=== PATIENT | female | born 1950 | race Hispanic/Latino ===

== ENCOUNTER 2017-06-16 16:58 | Emergency (ER) | payer OTHER, MEDICARE ==
[~2017-06-16 16:58] MED LIST: INSREG SQ; LISI-613 PO; METF500T6 PO; OXYB10TA4 PO; SIMV40TA59 PO
[2017-06-16 17:24] LABS: BILIRUBIN,URINE Negative (NEGATIVE); COLOR,URINE Yellow (YELLOW); GLUCOSE, URINE (UA) Negative (NEGATIVE); KETONES,URINE Negative (NEGATIVE); LEUKOCYTE ESTERASE ,URINE Trace (NEGATIVE); NITRATE,URINE Negative (NEGATIVE); OCCULT BLOOD,URINE Small (NEGATIVE); PROTEIN,URINE Negative (NEGATIVE)
[2017-06-16 17:25] LABS: APPEARANCE,URINE SLIGHTLY CLOUDY (CLEAR)
[2017-06-16] MEDS ORDERED: ACETAMINOPHEN 325 MG TAB ONE (17:34)
[2017-06-16 17:38] LABS: BASOPHILS % (AUTO) 0.5 % (0.0-5.0); EOSINOPHILS % (AUTO) 0.3 % (0.0-8.0); HEMATOCRIT 30.7 % (36-48); LYMPHOCYTES % (AUTO) 10.6 % (21.0-51.0); MEAN CORPUSCULAR HEMOGLOBIN 32.5 pg (27.0-33.0); MEAN CORPUSCULAR VOLUME 92.7 fL (79-99); NEUTROPHILS % (AUTO) 82.6 % (40.0-77.0); PLATELET COUNT (AUTO) 184 K/uL (130-400); RED BLOOD CELL COUNT(AUTO) 3.31 MIL/uL (4.00-5.50); RED CELL DISTRIBUTION WIDTH 12.8 % (11.0-15.5); WHITE BLOOD COUNT (AUTO) 8.4 K/uL (4.8-10.8)
[2017-06-16 17:39] LABS: BACTERIA,URINE Few /HPF (None Seen); SQUAMOUS EPITHELIAL CELL,UR Few /HPF (0-2); WBC,URINE 0-1 /HPF (0-1)
[2017-06-16 17:40] LABS: MUCUS,URINE Rare LPF (None Seen)
[2017-06-16 17:49] LABS: POTASSIUM 4.5 mmol/L (3.5-5.1)
[2017-06-16 17:53] LABS: ALBUMIN 3.4 g/dL (3.5-5.0); BILIRUBIN,TOTAL 0.4 mg/dL (0.2-1.0); TOTAL PROTEIN, SERUM 7.2 g/dL (6.0-8.3)
[2017-06-16 17:55] LABS: RAPID GROUP A STREP NEGATIVE (NEGATIVE)
[2017-06-16] MEDS ORDERED: BENZONATATE 100 MG CAPSULE PO ONE (18:31)
[2017-06-16] MEDS ORDERED: SODIUM CHLORIDE 0.9% 1000ML 1,000 ML IV ONE (18:31)
[2017-06-16] MEDS ORDERED: OSELTAMIVIR PHOSPHATE 75 MG CAP ONE (19:40)
[2017-06-16] MEDS ORDERED: IPRATROPIUM/ALBUTEROL SULFATE 3 ML SOLUTION IH ONE (19:45)
[2017-06-16] MEDS ORDERED: METOPROLOL TARTRATE 50 MG TAB ONE (20:36)
[2017-06-16] MEDS ORDERED: AMLODIPINE BESYLATE 5 MG TAB PO ONE (20:36)
[2017-06-16] MEDS ORDERED: METFORMIN HCL 500 MG TABLET ONE (20:37)
== END 2017-06-16 21:28 | disposition home or self-care (01) ==
LOC: EDH 16:58
DX: J06.9 Acute upper respiratory infection, unspecified (principal); E11.9 Type 2 diabetes mellitus without complications; I10 Essential (primary) hypertension; E78.5 Hyperlipidemia, unspecified
CPT/HCPCS: 36415; 71045; 80053; 81001; 83605; 85025; 87040 ×2; 87088; 87804 ×2; 87880; 93005; 94640; 96360; 96361; 99285; J7030

== ENCOUNTER 2018-03-08 08:28 | Emergency (ER) | payer OTHER, MEDICARE ==
[~2018-03-08 08:28] MED LIST changes: +METF-444 PO; -METF500T6 PO
[2018-03-08] MEDS ORDERED: SODIUM CHLORIDE 0.9% 1000ML 1,000 ML IV ONE (08:58)
[2018-03-08] MEDS ORDERED: LACTULOSE 20 GM/30 ML UDCUP ONE (08:58)
[2018-03-08] MEDS ORDERED: METOCLOPRAMIDE 10 MG/2 ML VIAL ONE ×2 (08:58→09:04)
[2018-03-08] MEDS ORDERED: FAMOTIDINE/PF 20 MG/2 ML VIAL IV ONE ×2 (08:59→09:04)
[2018-03-08 09:34] LABS: BASOPHILS % (AUTO) 0.5 % (0.0-5.0); HEMATOCRIT 34.6 % (36-48); LYMPHOCYTES % (AUTO) 24.4 % (21.0-51.0); MEAN CORPUSCULAR HEMOGLOBIN 32.8 pg (27.0-33.0); MEAN CORPUSCULAR HGB CONC 34.5 g/dL (32.0-36.0); MEAN CORPUSCULAR VOLUME 95.1 fL (79-99); MONOCYTES % (AUTO) 5.3 % (3.0-13.0); NEUTROPHILS % (AUTO) 68.8 % (40.0-77.0); PLATELET COUNT (AUTO) 167 K/uL (130-400); RED BLOOD CELL COUNT(AUTO) 3.64 MIL/uL (4.00-5.50); RED CELL DISTRIBUTION WIDTH 12.6 % (11.0-15.5); WHITE BLOOD COUNT (AUTO) 8.3 K/uL (4.8-10.8)
[2018-03-08 09:38] LABS: POTASSIUM 4.3 mmol/L (3.5-5.1)
[2018-03-08 09:43] LABS: ALBUMIN 3.8 g/dL (3.5-5.0); BILIRUBIN,TOTAL 0.6 mg/dL (0.2-1.0); TOTAL PROTEIN, SERUM 7.4 g/dL (6.0-8.3)
[2018-03-08 12:32] LABS: APPEARANCE,URINE Cloudy (CLEAR); BILIRUBIN,URINE Negative (NEGATIVE); COLOR,URINE Yellow (YELLOW); GLUCOSE, URINE (UA) Negative (NEGATIVE); KETONES,URINE Negative (NEGATIVE); LEUKOCYTE ESTERASE ,URINE Moderate (NEGATIVE); NITRATE,URINE Positive (NEGATIVE); OCCULT BLOOD,URINE Trace (NEGATIVE); PROTEIN,URINE Negative (NEGATIVE); UROBILINOGEN,URINE 0.2 mg/dL (0.2-1.0)
[2018-03-08 12:40] LABS: BACTERIA,URINE Many /HPF (None Seen); RBC,URINE 0-1 /HPF (0-1)
[2018-03-08 12:41] LABS: SQUAMOUS EPITHELIAL CELL,UR Rare /HPF (0-2)
[2018-03-08] MEDS ORDERED: SODIUM CHLORIDE 0.9% 100 ML IV ONE (12:46)
[2018-03-08] MEDS ORDERED: CEFTRIAXONE SODIUM 1 GM ONE (12:46)
== END 2018-03-08 13:43 | disposition home or self-care (01) ==
LOC: EDH 08:28
DX: K59.00 Constipation, unspecified (principal); N39.0 Urinary tract infection, site not specified; E11.9 Type 2 diabetes mellitus without complications; E78.5 Hyperlipidemia, unspecified; I10 Essential (primary) hypertension
CPT/HCPCS: 36415; 74018; 80053; 81001; 83605; 83690; 84484; 85025; 93005; 96361; 96374; 96375; 99284; J0696; J2765 ×2; J3490 ×2; J7030

== ENCOUNTER 2018-04-14 09:52 | Emergency (ER) | payer OTHER, MEDICARE ==
[2018-04-14] MEDS ORDERED: MORPHINE SULFATE 4 MG/1ML SYG ONE (11:22)
[2018-04-14] MEDS ORDERED: ONDANSETRON HCL 4 MG/2 ML VIAL ONE (11:22)
[2018-04-14] MEDS ORDERED: SODIUM CHLORIDE 0.9% 1000ML 1,000 ML IV ONE (11:22)
[2018-04-14 11:31] LABS: BASOPHILS % (AUTO) 0.2 % (0.0-5.0); EOSINOPHILS % (AUTO) 0.2 % (0.0-8.0); HEMATOCRIT 35.1 % (36-48); LYMPHOCYTES % (AUTO) 8.4 % (21.0-51.0); MEAN CORPUSCULAR HEMOGLOBIN 32.8 pg (27.0-33.0); MEAN CORPUSCULAR VOLUME 93.8 fL (79-99); MONOCYTES % (AUTO) 4.7 % (3.0-13.0); NEUTROPHILS % (AUTO) 86.5 % (40.0-77.0); PLATELET COUNT (AUTO) 175 K/uL (130-400); RED BLOOD CELL COUNT(AUTO) 3.74 MIL/uL (4.00-5.50); RED CELL DISTRIBUTION WIDTH 12.5 % (11.0-15.5); WHITE BLOOD COUNT (AUTO) 11.5 K/uL (4.8-10.8)
[2018-04-14 11:52] LABS: ALBUMIN 3.9 g/dL (3.5-5.0); BILIRUBIN,TOTAL 0.6 mg/dL (0.2-1.0); TOTAL PROTEIN, SERUM 7.4 g/dL (6.0-8.3)
[2018-04-14] MEDS ORDERED: IOHEXOL 350 MG/ML 100ML INFUS..BTL IV ONE (13:16)
== END 2018-04-14 14:48 | disposition home or self-care (01) ==
LOC: EDH 09:52
DX: K52.9 Noninfective gastroenteritis and colitis, unspecified (principal); E11.9 Type 2 diabetes mellitus without complications; E78.5 Hyperlipidemia, unspecified; I10 Essential (primary) hypertension
CPT/HCPCS: 36415; 74177; 76705; 80053; 83690; 84484; 85025; 93005; 96361; 96374; 96375; 99284; J2270; J2405; J7030; Q9967

== ENCOUNTER 2018-07-01 09:04 | Observation (INO) | payer OTHER, MEDICARE ==
[~2018-07-01] VITALS: Ht 127 cm; Wt 68.0 kg
[2018-07-01 09:51] LABS: BASOPHILS % (AUTO) 0.3 % (0.0-5.0); EOSINOPHILS % (AUTO) 0.6 % (0.0-8.0); HEMATOCRIT 34.2 % (36-48); LYMPHOCYTES % (AUTO) 14.7 % (21.0-51.0); MEAN CORPUSCULAR HEMOGLOBIN 32.4 pg (27.0-33.0); MEAN CORPUSCULAR HGB CONC 34.1 g/dL (32.0-36.0); MEAN CORPUSCULAR VOLUME 94.9 fL (79-99); MONOCYTES % (AUTO) 5.1 % (3.0-13.0); NEUTROPHILS % (AUTO) 79.3 % (40.0-77.0); PLATELET COUNT (AUTO) 187 K/uL (130-400); RED BLOOD CELL COUNT(AUTO) 3.61 MIL/uL (4.00-5.50); RED CELL DISTRIBUTION WIDTH 12.7 % (11.0-15.5); WHITE BLOOD COUNT (AUTO) 9.3 K/uL (4.8-10.8)
[2018-07-01 10:06] LABS: CREATININE 1.2 mg/dL (0.5-1.5); POTASSIUM 4.3 mmol/L (3.5-5.1)
[2018-07-01 10:07] LABS: INR 0.95 (0.85-1.15); PARTIAL THROMBOPLASTIN TIME 20.6 SEC (26.3-35.5)
[2018-07-01 10:13] LABS: BILIRUBIN,TOTAL 0.5 mg/dL (0.2-1.0); TOTAL PROTEIN, SERUM 7.6 g/dL (6.0-8.3)
[2018-07-01] MEDS: LOPERAMIDE HCL 2 MG CAP PO SCH ×2 (12:15→21:14)
[2018-07-01] MEDS: SODIUM CHLORIDE 0.9% 1000ML 1,000 ML IV SCH (12:15)
[2018-07-01 12:46] LABS: APPEARANCE,URINE Clear (CLEAR); BILIRUBIN,URINE Negative (NEGATIVE); COLOR,URINE Yellow (YELLOW); GLUCOSE, URINE (UA) Negative (NEGATIVE); KETONES,URINE Negative (NEGATIVE); LEUKOCYTE ESTERASE ,URINE Large (NEGATIVE); NITRATE,URINE Negative (NEGATIVE); OCCULT BLOOD,URINE Moderate (NEGATIVE); PROTEIN,URINE Trace mg/dL (NEGATIVE); UROBILINOGEN,URINE 0.2 mg/dL (0.2-1.0)
[2018-07-01 12:56] LABS: BACTERIA,URINE Many /HPF (None Seen); RBC,URINE None Seen /HPF (0-1); SQUAMOUS EPITHELIAL CELL,UR Few /HPF (0-2); WBC,URINE TNTC /HPF (0-1)
[2018-07-01] MEDS ORDERED: OMEP40CA37 PO (15:50)
[2018-07-01] MEDS ORDERED: INSLAN SQ (15:54)
[2018-07-01 16:08] VITALS: BP 137/64
[2018-07-01 19:00] VITALS: BP 134/49
[2018-07-01] MEDS: SIMVASTATIN 20 MG TABLET PO SCH (21:14)
[2018-07-01] MEDS: INSULIN GLARGINE 100 UNITS/ML 10 ML VIAL SQ SCH (21:17)
--- NOTE | 2018-07-01 21:20 | NUR ---
MEDS PT ASSISTED TO THE RESTROOM BUT NOTED TO BE VERY AFRAID TO WALK BY HERSELF SHE COULD NOT SEE. NOTED PIV TO BE INFILTRATED. PLACED PT BACK IN BED AND DISCONTINUED PIV WITH CATHETER INTACT. RE-INSERTED PIV G20 TO LFA THEN CONTINUED IVF. PCP ASKED TO PLACE A COMMODE IN THE ROOM FOR PT USE. SCD'S RE-APPLIED TO BLE. DUE MEDS ADMINISTERED, TOLERATED WELL. KEPT COMFORTABLE IN BED. FAMILY AT BEDSIDE. WILL MONITOR PT. Addendum: 07/02/18 at 0400 by MEENA MÁRQUEZ RN RN Amended: Links added.
[2018-07-01] MEDS ORDERED: LOPERAMIDE HCL 2 MG CAP PO PRN (22:30)
--- NOTE | 2018-07-01 22:30 | NUR ---
MD DR LACY IN TO SEE PT. NEW ORDERS GIVEN, PLEASE REFER TO CPOE. WILL MEDICATE PT.
[2018-07-01 23:20] VITALS: BP 113/52
[2018-07-01] MEDS: CEFTRIAXONE SODIUM 1 GM IVP SCH (23:34)
[2018-07-02] MEDS: SODIUM CHLORIDE 0.9% 1000ML 1,000 ML IV SCH ×3 (01:02→17:31)
--- NOTE | 2018-07-02 02:00 | NUR ---
ROUNDS PT FAIRLY ASLEEP WITH RESPIRATIONS EVEN AND UNLABORED. NO NOTED DISTRESS. KEPT UNDISTURBED FOR NOW. WILL MONITOR PT.
[2018-07-02 04:11] VITALS: BP 118/49
[2018-07-02 05:37] LABS: HEMATOCRIT 28.7 % (36-48); MEAN CORPUSCULAR HEMOGLOBIN 32.7 pg (27.0-33.0); MEAN CORPUSCULAR HGB CONC 34.7 g/dL (32.0-36.0); MEAN CORPUSCULAR VOLUME 94.1 fL (79-99); PLATELET COUNT (AUTO) 158 K/uL (130-400); RED BLOOD CELL COUNT(AUTO) 3.04 MIL/uL (4.00-5.50); RED CELL DISTRIBUTION WIDTH 12.5 % (11.0-15.5); WHITE BLOOD COUNT (AUTO) 7.3 K/uL (4.8-10.8)
[2018-07-02 05:53] LABS: ALBUMIN 3.1 g/dL (3.5-5.0); BILIRUBIN,TOTAL 0.3 mg/dL (0.2-1.0); CREATININE 0.9 mg/dL (0.5-1.5); POTASSIUM 4.4 mmol/L (3.5-5.1); TOTAL PROTEIN, SERUM 6.2 g/dL (6.0-8.3)
--- NOTE | 2018-07-02 06:00 | NUR ---
ROUNDS PT ALREADY AWAKE. NO COMPLAINTS VERBALIZED. NO DISTRESS NOTED. KEPT RESTED AND COMFORTABLE. FOR MORE CARE.
[2018-07-02] MEDS ORDERED: PHARMACY COMMUNICATION MISC SCH (07:30)
[2018-07-02 08:00] VITALS: BP 162/60
[2018-07-02] MEDS: OXYBUTYNIN 5 MG TAB.SR.24H PO SCH (09:00)
[2018-07-02] MEDS: PANTOPRAZOLE SODIUM 40 MG TABLET.DR PO SCH (09:00)
[2018-07-02] MEDS: METFORMIN HCL 500 MG TAB.SR.24H PO SCH (09:00)
[2018-07-02] MEDS: ONDANSETRON HCL 4 MG/2 ML VIAL IVP PRN (09:01)
[2018-07-02] MEDS: LISINOPRIL 20 MG TABLET PO SCH (09:01)
[2018-07-02 12:00] VITALS: BP 120/51
[2018-07-02 16:00] VITALS: BP 121/49
--- NOTE | 2018-07-02 18:33 | NUR ---
cm note met with patient and spouse,and dtr,pt lives w spouse pt independent with ambulation, has poor vision, but able to manage at home. only uses cane at times. has provider 4hrs daily spouse transports as needed. dc plan is home. Addendum: 07/02/18 at 1834 by MADIHA ROBLEDO CM Amended: Links added.
[2018-07-02 20:00] VITALS: BP 109/42
[2018-07-02] MEDS: INSULIN GLARGINE 100 UNITS/ML 10 ML VIAL SQ SCH (22:09)
[2018-07-02] MEDS: CEFTRIAXONE SODIUM 1 GM IVP SCH (22:15)
[2018-07-02] MEDS: SIMVASTATIN 20 MG TABLET PO SCH (22:15)
[2018-07-03] VITALS: BP 112/46
[2018-07-03 04:00] VITALS: BP 125/54
[2018-07-03] MEDS: ONDANSETRON HCL 4 MG/2 ML VIAL IVP PRN (07:54)
[2018-07-03] MEDS: OXYBUTYNIN 5 MG TAB.SR.24H PO SCH (07:54)
[2018-07-03] MEDS: SODIUM CHLORIDE 0.9% 1000ML 1,000 ML IV SCH (07:54)
[2018-07-03] MEDS: PANTOPRAZOLE SODIUM 40 MG TABLET.DR PO SCH (07:54)
[2018-07-03] MEDS: METFORMIN HCL 500 MG TAB.SR.24H PO SCH (07:54)
[2018-07-03] MEDS: LISINOPRIL 20 MG TABLET PO SCH (07:55)
[2018-07-03 08:00] VITALS: BP 164/71
[2018-07-03 12:00] VITALS: BP 150/60
[2018-07-03 16:00] VITALS: BP 135/59
--- NOTE | 2018-07-03 16:45 | NUR ---
Patient being discharged in stable condition. Patient appointment made for at 3:30pm for f/u with Dr. Pino on Urine C/S. IV taken out from left arm. pt tolerated well. Patient instructed on Antibiotic called in to [facility] pharmacy on in [place] Macrobid 100mg 1 cap PO BID for 7 days, spoke with Rylie Pharmacist. Patient/ and Daughter instructed on UTI and gastroenteritis and when to come back to ER. Patient verbalized understanding to teaching. Patient with no other questions or concerns voiced.
== END 2018-07-03 17:30 | disposition home or self-care (01) ==
LOC: EDH 09:04 → EDHIP 10:55 → 3BH 15:04
PROVIDERS: ADMIT Internal Medicine; ATTEND Internal Medicine
DX: R10.9 Unspecified abdominal pain (principal); R11.2 Nausea with vomiting, unspecified; R51 Headache; I10 Essential (primary) hypertension; E78.5 Hyperlipidemia, unspecified; E11.9 Type 2 diabetes mellitus without complications; Z90.710 Acquired absence of both cervix and uterus
CPT/HCPCS: 36415 ×2; 71045; 74176; 80053 ×2; 81001; 82150; 82550; 82948 ×9; 83690; 84484; 85025; 85027; 85610; 85730; 87077 ×2; 87088; 87186 ×2; 93005; 96361 ×2; 96372 ×2; 96374; 96375; 96376; 99291; A4218 ×2; G0378 ×55; J0696 ×2; J2405 ×2; J7030 ×3

== ENCOUNTER → 2018-07-18 | Outpatient (CLI) | payer OTHER, MEDICARE ==
[~2018-07-18] MED LIST changes: +INSLAN SQ; -INSREG SQ; +OMEP40CA37 PO
== END | disposition home or self-care (01) ==
LOC: RAH 07-10 09:23
PROVIDERS: ATTEND Internal Medicine
DX: R13.10 Dysphagia, unspecified (principal)
CPT/HCPCS: 74220

== ENCOUNTER → 2018-08-10 | Outpatient (CLI) | payer OTHER, MEDICARE | END | disposition home or self-care (01) | LOC: RAH 08:02 | PROVIDERS: ATTEND Internal Medicine Gastroenterology | DX: N28.1 Cyst of kidney, acquired (principal); N27.0 Small kidney, unilateral | CPT/HCPCS: 76700 ==

== ENCOUNTER → 2019-09-05 | Outpatient (CLI) | payer OTHER, MEDICARE ==
[~2019-09-05] MED LIST changes: +OMEP40CA13 PO; -OMEP40CA37 PO
== END | disposition home or self-care (01) ==
LOC: OIH 13:33
PROVIDERS: ATTEND Internal Medicine
DX: M47.26 Other spondylosis with radiculopathy, lumbar region (principal); M54.5 Low back pain
CPT/HCPCS: 72100

== ENCOUNTER 2020-02-02 11:17 | Inpatient (IN) | payer OTHER, MEDICARE ==
[~2020-02-02] VITALS: Ht 152.4 cm; Wt 75.3 kg
[2020-02-02 11:52] LABS: BASOPHILS % (AUTO) 0.7 % (0.0-5.0); EOSINOPHILS % (AUTO) 2.6 % (0.0-8.0); HEMATOCRIT 34.2 % (36-48); MEAN CORPUSCULAR HEMOGLOBIN 31.7 pg (27.0-33.0); MEAN CORPUSCULAR VOLUME 96.1 fL (79-99); MONOCYTES % (AUTO) 12.1 % (3.0-13.0); PLATELET COUNT (AUTO) 170 K/uL (130-400); RED BLOOD CELL COUNT(AUTO) 3.56 MIL/uL (4.00-5.50); RED CELL DISTRIBUTION WIDTH 12.2 % (11.0-15.5)
[2020-02-02] MEDS ORDERED: ONDANSETRON HCL 4 MG/2 ML VIAL ONE (11:52)
[2020-02-02] MEDS ORDERED: SODIUM CHLORIDE 0.9% 1000ML 1,000 ML IV ONE ×2 (11:52→21:24)
[2020-02-02 12:03] LABS: CREATININE 1.9 mg/dL (0.5-1.5); POTASSIUM 3.7 mmol/L (3.5-5.1)
[2020-02-02 12:05] LABS: ABG BASE EXCESS -6.5 mmol/L (-2.0-3.0); ABG HCO3 19.3 mmol/L (21.0-28.0); ABG OXYGEN SATURATION 94.2 % (95.0-99.0); ABG PCO2 40 mmHg (32-45)
[2020-02-02 12:07] LABS: ALBUMIN 3.7 g/dL (3.5-5.0); BILIRUBIN,TOTAL 0.5 mg/dL (0.2-1.0); TOTAL PROTEIN, SERUM 7.8 g/dL (6.0-8.3)
[2020-02-02] MEDS ORDERED: DiphenhydrAMINE HCL 50 MG/ML VIAL ONE (12:40)
[2020-02-02 13:08] LABS: APPEARANCE,URINE Cloudy (CLEAR); BILIRUBIN,URINE Small (NEGATIVE); COLOR,URINE Dark Yellow (YELLOW); GLUCOSE, URINE (UA) Negative (NEGATIVE); KETONES,URINE Negative (NEGATIVE); LEUKOCYTE ESTERASE ,URINE Negative (NEGATIVE); NITRATE,URINE Negative (NEGATIVE); OCCULT BLOOD,URINE Negative (NEGATIVE); PROTEIN,URINE Trace mg/dL (NEGATIVE); UROBILINOGEN,URINE 0.2 mg/dL (0.2-1.0)
[2020-02-02 13:36] LABS: YEAST,URINE BUDDING Many /HPF (None Seen)
[2020-02-02 13:38] LABS: BACTERIA,URINE Few /HPF (None Seen); RBC,URINE None Seen /HPF (0-1); SQUAMOUS EPITHELIAL CELL,UR 0-2 /HPF (0-2); WBC,URINE 0-1 /HPF (0-1)
[2020-02-02] MEDS: CEFTRIAXONE SODIUM 1 GM IVP SCH (14:45)
[2020-02-02] MEDS ORDERED: DOXYCYCLINE 100MG+NS 250ML IV SCH (14:45)
[2020-02-02] MEDS: SODIUM CHLORIDE 0.9% 1000ML 1,000 ML IV SCH (14:45)
[2020-02-02] MEDS ORDERED: ERGOCALCIFEROL (VITAMIN D2) 50,000 UNIT CAPSULE PO ONE (14:45)
[2020-02-02] MEDS: LISINOPRIL 40 MG TABLET PO SCH (15:16)
[2020-02-02] MEDS ORDERED: FAMOTIDINE/PF 20 MG/2 ML VIAL IV SCH (16:00)
[2020-02-02] MEDS ORDERED: DOXYCYCLINE 100MG+NS 250ML 250 ML IV SCH (16:00)
[2020-02-02] MEDS: INSULIN HUMULIN R 100 UNIT/ML 3ML SQ SCH ×2 (16:30→21:00)
[2020-02-02] MEDS: SIMVASTATIN 10 MG TABLET PO SCH (21:00)
[2020-02-02] MEDS ORDERED: SIMVASTATIN 10 MG TABLET ONE (21:19)
[2020-02-03] MEDS ORDERED: CEFTRIAXONE SODIUM 1 GM ONE (01:47)
[2020-02-03] MEDS: CEFTRIAXONE SODIUM 1 GM IVP SCH ×2 (02:45→14:45)
[2020-02-03] MEDS: SODIUM CHLORIDE 0.9% 1000ML 1,000 ML IV SCH ×2 (04:05→23:46)
[2020-02-03 05:28] LABS: BASOPHILS % (AUTO) 0.4 % (0.0-5.0); EOSINOPHILS % (AUTO) 3.3 % (0.0-8.0); HEMATOCRIT 31.6 % (36-48); LYMPHOCYTES % (AUTO) 26.2 % (21.0-51.0); MEAN CORPUSCULAR HEMOGLOBIN 31.1 pg (27.0-33.0); MEAN CORPUSCULAR HGB CONC 32.3 g/dL (32.0-36.0); MEAN CORPUSCULAR VOLUME 96.3 fL (79-99); MONOCYTES % (AUTO) 11.4 % (3.0-13.0); NEUTROPHILS % (AUTO) 57.8 % (40.0-77.0); PLATELET COUNT (AUTO) 178 K/uL (130-400); RED BLOOD CELL COUNT(AUTO) 3.28 MIL/uL (4.00-5.50); RED CELL DISTRIBUTION WIDTH 12.3 % (11.0-15.5)
[2020-02-03 05:38] LABS: ALBUMIN 2.9 g/dL (3.5-5.0); BILIRUBIN,TOTAL 0.3 mg/dL (0.2-1.0); CREATININE 1.3 mg/dL (0.5-1.5); CRP QUANTITATIVE 119.8 mg/L (0.00-9.0); POTASSIUM 3.4 mmol/L (3.5-5.1); TOTAL PROTEIN, SERUM 6.5 g/dL (6.0-8.3)
[2020-02-03] MEDS ORDERED: LOPERAMIDE HCL 2 MG CAP PO PRN (06:00)
[2020-02-03] MEDS: INSULIN HUMULIN R 100 UNIT/ML 3ML SQ SCH ×4 (07:30→21:00)
[2020-02-03] MEDS ORDERED: POTASSIUM CHLORIDE 20 MEQ ERTAB PO SCH (08:15)
[2020-02-03] MEDS: ASCORBIC ACID 500 MG TAB PO SCH (09:00)
[2020-02-03] MEDS: ZINC SULFATE 220 CAPSULE PO SCH (09:00)
[2020-02-03] MEDS: ENOXAPARIN SODIUM 40 MG/0.4 ML SYRINGE SQ SCH (09:00)
[2020-02-03] MEDS: LISINOPRIL 40 MG TABLET PO SCH (09:00)
[2020-02-03] MEDS ORDERED: ASCORBIC ACID 500 MG TAB ONE (10:09)
[2020-02-03] MEDS ORDERED: ZINC SULFATE 220 CAPSULE ONE (10:09)
[2020-02-03] MEDS ORDERED: ENOXAPARIN SODIUM 40 MG/0.4 ML SYRINGE SQ ONE (10:09)
[2020-02-03] MEDS ORDERED: ONDANSETRON HCL 4 MG/2 ML VIAL ONE (10:15)
[2020-02-03] MEDS ORDERED: METRONIDAZOLE 500 MG TABLET ONE (14:55)
--- NOTE | 2020-02-03 15:36 | NUR ---
cm note spoke to pt's spouse, pt resides at home with spouse and daughter barbara, uses cane for ambulation, has provider 3hrs daily for adls assist. no home health. spouse transports. no dc needs. dc plan is back home at time of dc. Addendum: 02/03/20 at 1539 by MADIHA ROBLEDO CM Amended: Links added.
[2020-02-03] MEDS ORDERED: DiphenhydrAMINE HCL 50 MG/ML VIAL IV PRN (16:30)
[2020-02-03] MEDS ORDERED: ONDANSETRON HCL 4 MG/2 ML VIAL IVP PRN (17:15)
[2020-02-03 21:59] VITALS: BP 127/59
[2020-02-03] MEDS: FAMOTIDINE/PF 20 MG/2 ML VIAL IV SCH (23:46)
[2020-02-03] MEDS: SIMVASTATIN 10 MG TABLET PO SCH (23:47)
[2020-02-03] MEDS ORDERED: DIPHENHYDRAMINE HCL 25 MG CAPSULE ONE (23:56)
[2020-02-04] MEDS: CEFTRIAXONE SODIUM 1 GM IVP SCH (01:26)
[2020-02-04 01:33] VITALS: BP 114/64
[2020-02-04 05:20] LABS: BASOPHILS % (AUTO) 0.5 % (0.0-5.0); EOSINOPHILS % (AUTO) 3.1 % (0.0-8.0); HEMATOCRIT 28.8 % (36-48); LYMPHOCYTES % (AUTO) 32.5 % (21.0-51.0); MEAN CORPUSCULAR HEMOGLOBIN 31.2 pg (27.0-33.0); MEAN CORPUSCULAR HGB CONC 32.6 g/dL (32.0-36.0); MEAN CORPUSCULAR VOLUME 95.7 fL (79-99); MONOCYTES % (AUTO) 10.3 % (3.0-13.0); NEUTROPHILS % (AUTO) 50.4 % (40.0-77.0); PLATELET COUNT (AUTO) 164 K/uL (130-400); RED BLOOD CELL COUNT(AUTO) 3.01 MIL/uL (4.00-5.50); RED CELL DISTRIBUTION WIDTH 12.2 % (11.0-15.5); WHITE BLOOD COUNT (AUTO) 6.2 K/uL (4.8-10.8)
[2020-02-04 05:31] LABS: ALBUMIN 2.7 g/dL (3.5-5.0); BILIRUBIN,TOTAL 0.2 mg/dL (0.2-1.0); CRP QUANTITATIVE 54.7 mg/L (0.00-9.0); POTASSIUM 3.1 mmol/L (3.5-5.1); TOTAL PROTEIN, SERUM 5.9 g/dL (6.0-8.3)
[2020-02-04 06:36] VITALS: BP 111/32
[2020-02-04] MEDS: SODIUM CHLORIDE 0.9% 1000ML 1,000 ML IV SCH ×2 (06:45→20:46)
[2020-02-04] MEDS: METRONIDAZOLE 500 MG TABLET PO SCH ×3 (07:00→22:32)
[2020-02-04] MEDS: INSULIN HUMULIN R 100 UNIT/ML 3ML SQ SCH ×4 (07:00→20:47)
[2020-02-04 08:56] VITALS: BP 132/44
[2020-02-04] MEDS: ASCORBIC ACID 500 MG TAB PO SCH (10:21)
[2020-02-04] MEDS: FAMOTIDINE/PF 20 MG/2 ML VIAL IV SCH (10:22)
[2020-02-04] MEDS: LISINOPRIL 40 MG TABLET PO SCH (10:22)
[2020-02-04] MEDS: ZINC SULFATE 220 CAPSULE PO SCH (10:22)
[2020-02-04] MEDS: ENOXAPARIN SODIUM 40 MG/0.4 ML SYRINGE SQ SCH (10:23)
[2020-02-04 12:55] VITALS: BP 130/50
[2020-02-04 17:22] VITALS: BP 152/53
[2020-02-04] MEDS ORDERED: POTASSIUM CHLORIDE 20MEQ/100ML 100 ML IV PRN ×2 (17:45)
[2020-02-04] MEDS ORDERED: POTASSIUM CHLORIDE 10% ELIXIR 20 MEQ/15 ML UDCUP PO PRN (17:45)
[2020-02-04] MEDS ORDERED: GABA300S PO (17:56)
[2020-02-04] MEDS ORDERED: MAGN400T40 PO (17:56)
[2020-02-04] MEDS ORDERED: OMEP40CA13 PO (17:56)
[2020-02-04] MEDS: POTASSIUM CHLORIDE 20 MEQ ERTAB PO PRN ×2 (18:09→20:48)
[2020-02-04] MEDS: GABAPENTIN 300 MG CAPSULE PO SCH (20:46)
[2020-02-04] MEDS: SIMVASTATIN 10 MG TABLET PO SCH (20:46)
[2020-02-04 20:49] VITALS: BP 114/92
[2020-02-04] MEDS ORDERED: NON-FORMULARY MEDICATION 1 EACH (Gabapentin 300 MG) PO SCH (21:00)
[2020-02-04] MEDS ORDERED: POTASSIUM CHLORIDE 20 MEQ ERTAB PO ONE (23:29)
[2020-02-04] MEDS: DIPHENHYDRAMINE HCL 25 MG CAPSULE PO SCH ×3 (23:38→23:39)
[2020-02-05] MEDS ORDERED: DiphenhydrAMINE HCL 50 MG/ML VIAL ONE (00:03)
[2020-02-05 00:16] VITALS: BP 131/85
[2020-02-05 05:14] VITALS: BP 114/37
[2020-02-05] MEDS ORDERED: METRONIDAZOLE 500 MG TABLET ONE (05:28)
[2020-02-05] MEDS: METRONIDAZOLE 500 MG TABLET PO SCH ×3 (05:58→22:06)
[2020-02-05] MEDS: INSULIN HUMULIN R 100 UNIT/ML 3ML SQ SCH ×4 (05:59→21:12)
[2020-02-05 07:13] LABS: POTASSIUM 4.2 mmol/L (3.5-5.1)
[2020-02-05] MEDS ORDERED: OXYBUTYNIN CHLORIDE 10 MG PO SCH (09:00)
[2020-02-05] MEDS ORDERED: NON-FORMULARY MEDICATION 1 EACH (Magnesium Oxide (Magnesium) 400 MG) PO SCH (09:00)
[2020-02-05] MEDS ORDERED: NON-FORMULARY MEDICATION 1 EACH (Simvastatin (Zocor) 40 MG) PO SCH (09:00)
[2020-02-05] MEDS: OXYBUTYNIN 10 MG PO SCH (09:00)
[2020-02-05 09:44] VITALS: BP 142/60
[2020-02-05] MEDS: ASCORBIC ACID 500 MG TAB PO SCH (10:35)
[2020-02-05] MEDS: ZINC SULFATE 220 CAPSULE PO SCH (10:35)
[2020-02-05] MEDS: LISINOPRIL 40 MG TABLET PO SCH (10:36)
[2020-02-05] MEDS: METFORMIN HCL 500 MG TABLET PO SCH (10:36)
[2020-02-05] MEDS: FAMOTIDINE/PF 20 MG/2 ML VIAL IV SCH (10:37)
[2020-02-05] MEDS: MAGNESIUM OXIDE 400 MG TABLET PO SCH (10:37)
[2020-02-05] MEDS: ENOXAPARIN SODIUM 40 MG/0.4 ML SYRINGE SQ SCH (10:37)
[2020-02-05] MEDS: SODIUM CHLORIDE 0.9% 1000ML 1,000 ML IV SCH ×2 (10:41→21:09)
[2020-02-05 11:46] LABS: ALBUMIN 2.8 g/dL (3.5-5.0); BILIRUBIN,TOTAL 0.2 mg/dL (0.2-1.0); CREATININE 0.8 mg/dL (0.5-1.5); CRP QUANTITATIVE 23.7 mg/L (0.00-9.0)
[2020-02-05 12:20] LABS: BASOPHILS % (AUTO) 0.6 % (0.0-5.0); EOSINOPHILS % (AUTO) 3.8 % (0.0-8.0); HEMATOCRIT 30.3 % (36-48); LYMPHOCYTES % (AUTO) 32.8 % (21.0-51.0); MEAN CORPUSCULAR HEMOGLOBIN 31.4 pg (27.0-33.0); MEAN CORPUSCULAR VOLUME 95.3 fL (79-99); MONOCYTES % (AUTO) 8.4 % (3.0-13.0); NEUTROPHILS % (AUTO) 48.9 % (40.0-77.0); NUCLEATED RED BLOOD CELLS 0.3 % (0.0-0.19); PLATELET COUNT (AUTO) 176 K/uL (130-400); RED BLOOD CELL COUNT(AUTO) 3.18 MIL/uL (4.00-5.50); RED CELL DISTRIBUTION WIDTH 11.9 % (11.0-15.5); WHITE BLOOD COUNT (AUTO) 7.1 K/uL (4.8-10.8)
[2020-02-05 14:49] VITALS: BP 143/58
[2020-02-05 18:13] VITALS: BP 121/44
[2020-02-05 20:48] VITALS: BP 120/45
[2020-02-05] MEDS: GABAPENTIN 300 MG CAPSULE PO SCH (21:08)
[2020-02-05] MEDS: SIMVASTATIN 10 MG TABLET PO SCH (21:08)
[2020-02-06] MEDS: DIPHENHYDRAMINE HCL 25 MG CAPSULE PO SCH
[2020-02-06 00:21] VITALS: BP 114/45
[2020-02-06 04:10] VITALS: BP 127/40
[2020-02-06] MEDS: METRONIDAZOLE 500 MG TABLET PO SCH ×3 (05:58→21:42)
[2020-02-06] MEDS: INSULIN HUMULIN R 100 UNIT/ML 3ML SQ SCH ×4 (05:58→21:00)
[2020-02-06] MEDS: MAGNESIUM OXIDE 400 MG TABLET PO SCH (09:07)
[2020-02-06] MEDS: ZINC SULFATE 220 CAPSULE PO SCH (09:08)
[2020-02-06] MEDS: FAMOTIDINE/PF 20 MG/2 ML VIAL IV SCH (09:08)
[2020-02-06] MEDS: ASCORBIC ACID 500 MG TAB PO SCH (09:08)
[2020-02-06] MEDS: LISINOPRIL 40 MG TABLET PO SCH (09:08)
[2020-02-06] MEDS: METFORMIN HCL 500 MG TABLET PO SCH (09:08)
[2020-02-06] MEDS: ENOXAPARIN SODIUM 40 MG/0.4 ML SYRINGE SQ SCH (09:09)
[2020-02-06] MEDS: OXYBUTYNIN 10 MG PO SCH (09:10)
[2020-02-06 09:57] VITALS: BP 125/25
[2020-02-06] MEDS ORDERED: LOPERAMIDE 1 MG/7.5 ML UDCUP PO SCH (12:30)
[2020-02-06 12:47] VITALS: BP 141/58
[2020-02-06] MEDS: SODIUM CHLORIDE 0.9% 1000ML 1,000 ML IV SCH (15:02)
[2020-02-06 17:07] VITALS: BP 135/64
--- NOTE | 2020-02-06 17:23 | NUR ---
CM Note: POC CM met with pt discussed POC, pt at this time still prefers to go home or stay in the hospital, declined placement. Ask pt if ok to call spouse/daughter to discuss POC, pt verbalized it's ok to call daughter Mari [phone]. Called Mari, made aware pt is still c/o diarrhea, still prefers to go home or stay in hospital, daughter agreeable w/pt, asked daughter when she found out she has covid, daughter verbalized just this Monday and is currently in quarantine at home separately with father. Daughter verbalized pt may stay with her Aunt(pt's sister) next door if needed, aunt is agreeable for pt to stay with her until able to go back home. Daughter verbalized her sister and Aunt will be able to assist with pt's need and transportation as necessary. Patient will return to original home setting once daughter's quarantine is over. Declined placement at this time. DC plan to home. Dr Olson updated. Primary nurse Aguila SANTOS aware. CM to continue to follow up.
[2020-02-06] MEDS: GABAPENTIN 300 MG CAPSULE PO SCH (19:54)
[2020-02-06] MEDS: SIMVASTATIN 10 MG TABLET PO SCH (19:55)
[2020-02-06 20:47] VITALS: BP 141/55
[2020-02-07] MEDS: DIPHENHYDRAMINE HCL 25 MG CAPSULE PO SCH
[2020-02-07 00:27] VITALS: BP 121/41
[2020-02-07] MEDS: SODIUM CHLORIDE 0.9% 1000ML 1,000 ML IV SCH ×2 (01:05→14:45)
[2020-02-07 04:15] VITALS: BP 150/58
[2020-02-07 05:08] LABS: BASOPHILS % (AUTO) 0.6 % (0.0-5.0); EOSINOPHILS % (AUTO) 3.4 % (0.0-8.0); LYMPHOCYTES % (AUTO) 26.6 % (21.0-51.0); MEAN CORPUSCULAR HGB CONC 33.3 g/dL (32.0-36.0); MEAN CORPUSCULAR VOLUME 92.9 fL (79-99); MONOCYTES % (AUTO) 7.4 % (3.0-13.0); NEUTROPHILS % (AUTO) 57.8 % (40.0-77.0); PLATELET COUNT (AUTO) 172 K/uL (130-400); RED BLOOD CELL COUNT(AUTO) 3.23 MIL/uL (4.00-5.50); RED CELL DISTRIBUTION WIDTH 11.8 % (11.0-15.5); WHITE BLOOD COUNT (AUTO) 8.8 K/uL (4.8-10.8)
[2020-02-07] MEDS: METRONIDAZOLE 500 MG TABLET PO SCH ×2 (05:11→14:54)
[2020-02-07] MEDS: INSULIN HUMULIN R 100 UNIT/ML 3ML SQ SCH ×2 (05:19→11:30)
[2020-02-07 05:44] LABS: ALBUMIN 2.7 g/dL (3.5-5.0); BILIRUBIN,TOTAL 0.3 mg/dL (0.2-1.0); CREATININE 0.7 mg/dL (0.5-1.5); POTASSIUM 3.8 mmol/L (3.5-5.1); TOTAL PROTEIN, SERUM 5.9 g/dL (6.0-8.3)
[2020-02-07 08:00] VITALS: BP 136/57
--- NOTE | 2020-02-07 08:00 | NUR ---
ASSESSMENT PT AAOX3, VS ARE STABLE SHE IS RA, AND NO LOOSE STOOLS THIS AM.
[2020-02-07] MEDS ORDERED: LOPERAMIDE HCL 2 MG CAP PO SCH (08:45)
[2020-02-07] MEDS: OXYBUTYNIN 10 MG PO SCH (09:00)
[2020-02-07] MEDS ORDERED: LOPE2 PO (09:01)
[2020-02-07] MEDS: LISINOPRIL 40 MG TABLET PO SCH (09:07)
[2020-02-07] MEDS: MAGNESIUM OXIDE 400 MG TABLET PO SCH (09:07)
[2020-02-07] MEDS: METFORMIN HCL 500 MG TABLET PO SCH (09:07)
[2020-02-07] MEDS: ASCORBIC ACID 500 MG TAB PO SCH (09:07)
[2020-02-07] MEDS: ZINC SULFATE 220 CAPSULE PO SCH (09:08)
[2020-02-07] MEDS: ENOXAPARIN SODIUM 40 MG/0.4 ML SYRINGE SQ SCH (09:08)
[2020-02-07] MEDS: FAMOTIDINE/PF 20 MG/2 ML VIAL IV SCH (09:08)
[2020-02-07 12:00] VITALS: BP 157/57
--- NOTE | 2020-02-07 15:28 | NUR ---
D/C PT AAOX3 VS STABLE NO LOOSE STOOLS UPON D/C, INSTRUCTIONS GIVEN TO DAUGHTER. PT LEAVING VIA WHEELCHAIR IN PVT CAR, NO COMPLICATIONS UPON D/C
--- NOTE | 2020-02-07 18:42 | NUR ---
CALLED DAUGHTER OF ELVA YU AT [phone] , ABOUT REPORT OF A MISSING WALLET. FLORESITA WAS NOT HER MOTHER PURSE AND IS MISSING . INFORMED WE HAVE NOT SEEN THE WALLET AND THAT SHE DID HAVE A PURSE HERE. INSTRUCTED HER TO CALL [employer] ABOUT THE MISSING WALLET SO THEY COULD DO A INVESTIGATIONS. SHE SAID SHE WILL CALL THEM IN THE MORNING.
== END 2020-02-07 15:50 | disposition home or self-care (01) | DRG 392 ==
LOC: EDH 11:17 → EDHIP 14:34 → 3DH 02-03 19:42 → UNDODISIN 02-04 21:50
PROVIDERS: ADMIT Hospitalist; ATTEND Hospitalist
DX: K52.9 Noninfective gastroenteritis and colitis, unspecified (principal); E87.6 Hypokalemia; N20.0 Calculus of kidney; Z20.828 Contact with and (suspected) exposure to other viral communicable diseases; I10 Essential (primary) hypertension; E11.9 Type 2 diabetes mellitus without complications; E78.00 Pure hypercholesterolemia, unspecified; E78.5 Hyperlipidemia, unspecified; M06.9 Rheumatoid arthritis, unspecified; Z83.3 Family history of diabetes mellitus; Z86.19 Personal history of other infectious and parasitic diseases; Z87.442 Personal history of urinary calculi; Z87.891 Personal history of nicotine dependence; Z90.710 Acquired absence of both cervix and uterus; R53.81 Other malaise
CPT/HCPCS: 36415; 36600; 71045; 74176; 80053; 81001; 82150; 82270; 82728; 82803; 82948; 83630; 83690; 84145; 85025; 85378; 86140; 86850; 86900; 86901; 87040; 87046; 87324; 87426; 87507; 93005; G0378; J0696; J1200; J1650; J1815; J2405; J3490; J7030; Q0163; U0003

== ENCOUNTER → 2021-05-27 | Outpatient (CLI) | payer OTHER, MEDICARE ==
[~2021-05-27] MED LIST changes: +GABA300S PO; -LISI-613 PO; +LISI20TA24 PO; +LOPE2 PO; +MAGN400T40 PO; -OMEP40CA13 PO; +OMEP40CA21 PO
== END | disposition home or self-care (01) ==
LOC: RAH 07:54
PROVIDERS: ATTEND Internal Medicine
DX: R79.1 Abnormal coagulation profile (principal); M79.631 Pain in right forearm
CPT/HCPCS: 93970

== ENCOUNTER 2022-05-01 16:02 | Emergency (ER) | payer OTHER, MEDICARE ==
[~2022-05-01] VITALS: Ht 149.9 cm; Wt 77.1 kg
[~2022-05-01 16:02] MED LIST changes: +GABA-533 PO; -GABA300S PO; -INSLAN SQ; -LISI20TA24 PO; -LOPE2 PO; -MAGN400T40 PO
[2022-05-01 17:28] LABS: BASOPHILS % (AUTO) 0.3 % (0.0-5.0); EOSINOPHILS % (AUTO) 0.3 % (0.0-8.0); HEMATOCRIT 37.4 % (36-48); LYMPHOCYTES % (AUTO) 10.4 % (21.0-51.0); MEAN CORPUSCULAR HEMOGLOBIN 30.9 pg (27.0-33.0); MEAN CORPUSCULAR HGB CONC 32.9 g/dL (32.0-36.0); MONOCYTES % (AUTO) 5.3 % (3.0-13.0); NEUTROPHILS % (AUTO) 83.3 % (40.0-77.0); PLATELET COUNT (AUTO) 166 K/uL (130-400); RED BLOOD CELL COUNT(AUTO) 3.98 MIL/uL (4.00-5.50)
[2022-05-01 17:39] LABS: CREATININE 1.4 mg/dL (0.5-1.5); POTASSIUM 4.4 mmol/L (3.5-5.1)
[2022-05-01 17:45] LABS: TOTAL PROTEIN, SERUM 7.6 g/dL (6.0-8.3)
[2022-05-01 21:15] LABS: APPEARANCE,URINE CLOUDY (CLEAR); BILIRUBIN,URINE NEGATIVE (NEGATIVE); COLOR,URINE YELLOW (YELLOW); GLUCOSE, URINE (UA) >=1000 mg/dL (NEGATIVE); KETONES,URINE NEGATIVE (NEGATIVE); LEUKOCYTE ESTERASE ,URINE NEGATIVE Leu/uL (NEGATIVE); NITRATE,URINE NEGATIVE (NEGATIVE); OCCULT BLOOD,URINE NEGATIVE (NEGATIVE); PROTEIN,URINE NEGATIVE (NEGATIVE); UROBILINOGEN,URINE 0.2 mg/dL (0.2-1.0)
[2022-05-01 21:28] LABS: BACTERIA,URINE RARE /HPF (None Seen); MUCUS,URINE RARE LPF (None Seen); SQUAMOUS EPITHELIAL CELL,UR FEW /HPF (0-2); URIC ACID CRYSTALS,URINE RARE /LPF (None Seen); YEAST,URINE BUDDING MANY /HPF (None Seen)
[2022-05-01] MEDS ORDERED: ONDANSETRON 4MG INJ IVP ONE (21:30)
[2022-05-01] MEDS ORDERED: 0.9%NACL 1000ML 1,000 ML IV ONE (21:30)
[2022-05-01] MEDS ORDERED: ONDANSETRON 4MG INJ ONE (21:34)
[2022-05-01] MEDS ORDERED: IBUP-1493 PO (22:39)
[2022-05-01 22:42] VITALS: BP 132/70
[2022-06-26] MEDS ORDERED: LISI20TA24 PO (03:18)
== END 2022-05-01 22:47 | disposition home or self-care (01) ==
LOC: EDH 16:02
DX: R10.30 Lower abdominal pain, unspecified (principal); R11.0 Nausea; E11.9 Type 2 diabetes mellitus without complications; E78.00 Pure hypercholesterolemia, unspecified; I10 Essential (primary) hypertension; Z79.84 Long term (current) use of oral hypoglycemic drugs; Z79.899 Other long term (current) drug therapy; E86.0 Dehydration
CPT/HCPCS: 99285; 74176; 96374; 96361; 84484; 80053; 83690; 85025; 87077; 87088; 87186; 81001; 36415; 93005; J7030; J2405

== ENCOUNTER 2022-11-16 08:46 | Emergency (ER) | payer MEDICARE, OTHER ==
[~2022-11-16] VITALS: Ht 144.8 cm; Wt 55.8 kg
[~2022-11-16 08:46] MED LIST changes: -GABA-533 PO; +GABA-534 PO; +IBUP-1493 PO; +LISI20TA24 PO
[2022-11-16 09:17] LABS: BASOPHILS # (AUTO) 0.03 K/uL (0.00-0.20); BASOPHILS % (AUTO) 0.5 % (0.0-5.0); EOSINOPHILS # (AUTO) 0.05 K/uL (0.00-0.70); EOSINOPHILS % (AUTO) 0.8 % (0.0-8.0); HEMATOCRIT 33.7 % (36-48); IMMATURE GRANULOCYTE ABSOLUTE 0.02 K/uL (0-1); LYMPHOCYTES # (AUTO) 1.7 K/uL (1.0-4.8); LYMPHOCYTES % (AUTO) 26.8 % (21.0-51.0); MEAN CORPUSCULAR HEMOGLOBIN 32.3 pg (27.0-33.0); MEAN CORPUSCULAR HGB CONC 33.5 g/dL (32.0-36.0); MEAN CORPUSCULAR VOLUME 96.3 fL (79-99); MONOCYTES # (AUTO) 0.3 K/uL (0.1-1.0); MONOCYTES % (AUTO) 4.1 % (3.0-13.0); NEUTROPHILS # (AUTO) 4.2 K/uL (1.8-7.7); NEUTROPHILS % (AUTO) 67.5 % (40.0-77.0); PLATELET COUNT (AUTO) 180 K/uL (130-400); RED CELL DISTRIBUTION WIDTH 11.9 % (11.0-15.5); WHITE BLOOD COUNT (AUTO) 6.3 K/uL (4.8-10.8)
[2022-11-16 09:42] LABS: ALBUMIN 3.9 g/dL (3.5-5.0); BILIRUBIN,TOTAL 0.7 mg/dL (0.2-1.0); CREATININE 1.1 mg/dL (0.5-1.5); POTASSIUM 4.4 mmol/L (3.5-5.1); TOTAL PROTEIN, SERUM 7.5 g/dL (6.0-8.3)
[2022-11-16] MEDS ORDERED: 0.9%NACL 1000ML 1,000 ML IV ONE ×2 (11:30→12:00)
[2022-11-16] MEDS ORDERED: MAG/ALUM/SIMETH 30 ML UDCUP PO ONE (12:00)
[2022-11-16] MEDS ORDERED: MORPHINE 2 MG SYG IVP ONE (12:00)
[2022-11-16] MEDS ORDERED: ONDANSETRON 4MG INJ IVP ONE (12:00)
[2022-11-16] MEDS ORDERED: LIDOCAINE HCL 2% VISCOUS 15 ML UDCUP PO ONE (12:00)
[2022-11-16] MEDS ORDERED: PANTOPRAZOLE 40 MG/VIAL IVP ONE (12:00)
[2022-11-16 12:23] VITALS: BP 164/75; PULSE 85; RESP 16; O2SAT 96
[2022-11-16] MEDS ORDERED: TAMS-1 PO (12:27)
[2022-11-16] MEDS ORDERED: FAMO20TA8 PO (12:27)
[2022-11-16 13:00] LABS: APPEARANCE,URINE CLEAR (CLEAR); BILIRUBIN,URINE NEGATIVE (NEGATIVE); COLOR,URINE LIGHT-YELLOW (YELLOW); GLUCOSE, URINE (UA) 300 mg/dL (NEGATIVE); KETONES,URINE NEGATIVE (NEGATIVE); LEUKOCYTE ESTERASE ,URINE NEGATIVE Leu/uL (NEGATIVE); NITRATE,URINE NEGATIVE (NEGATIVE); OCCULT BLOOD,URINE NEGATIVE (NEGATIVE); PROTEIN,URINE NEGATIVE (NEGATIVE); UROBILINOGEN,URINE 0.2 mg/dL (0.2-1.0)
[2022-11-16 13:02] LABS: ADD UA MICROSCOPIC YES
[2022-11-16 13:07] LABS: BACTERIA,URINE RARE /HPF (None Seen); MUCUS,URINE RARE LPF (None Seen); SQUAMOUS EPITHELIAL CELL,UR RARE /HPF (0-2); YEAST,URINE BUDDING MOD /HPF (None Seen)
== END 2022-11-16 13:16 | disposition home or self-care (01) ==
LOC: EDH 08:46
DX: N20.0 Calculus of kidney (principal); K29.70 Gastritis, unspecified, without bleeding; E11.65 Type 2 diabetes mellitus with hyperglycemia; Z90.49 Acquired absence of other specified parts of digestive tract; Z90.710 Acquired absence of both cervix and uterus; Z79.1 Long term (current) use of non-steroidal anti-inflammatories (NSAID); Z79.84 Long term (current) use of oral hypoglycemic drugs; Z79.899 Other long term (current) drug therapy
CPT/HCPCS: 99285; 74176; 96374; 71045; 96375; 96361; 84484; 80053; 83690; 85025; 81001; 36415; 93005; J2270; J7030; J2405; C9113

== ENCOUNTER 2024-05-27 10:52 | Emergency (ER) | payer OTHER, MEDICARE ==
[~2024-05-27] VITALS: Ht 144.8 cm; Wt 61.7 kg
[~2024-05-27 10:52] MED LIST changes: +ASPI-1026 PO; +ATOR10TA69 PO; +FAMO20TA8 PO; +LINA5TAB PO; +MYCO250C7 PO; +NIFE-79 PO; +TACR1CAP10 PO; +TAMS-1 PO
--- NOTE | 2024-05-27 12:14 | EKG ---
[facility] Test Date: 2024-05-27 Test Time: 12:07:31 Pat Name: ELVA YU Department: ED Room: Gender: F Surveyor Rod Helper: [phone] : [id number] Requested By: WALLACE BARNETT Order Number: [id number] Reading MD: Daniel Vasquez Measurements Intervals [place] Rate: 69 P: 70 ND: 155 QRS: 26 QRSD: 122 T: 42 QT: 440 QTc: 473 Interpretive Statements Sinus rhythm Right bundle branch block Compared to ECG 11/16/2022 08:56:59 No significant changes Electronically Signed On 05-27-2024 19:00:19 [employer] SERVICES ASSOCIATE by Daniel Vasquez Please click the below link to view image of tracing.
[2024-05-27 13:09] LABS: BASOPHILS # (AUTO) 0.02 K/uL (0.00-0.20); BASOPHILS % (AUTO) 0.4 % (0.0-5.0); EOSINOPHILS # (AUTO) 0.01 K/uL (0.00-0.70); EOSINOPHILS % (AUTO) 0.2 % (0.0-8.0); HEMATOCRIT 37.5 % (36-48); IMMATURE GRANULOCYTE ABSOLUTE 0.01 K/uL (0-1); LYMPHOCYTES # (AUTO) 1.6 K/uL (1.0-4.8); MEAN CORPUSCULAR HEMOGLOBIN 32.1 pg (27.0-33.0); MEAN CORPUSCULAR HGB CONC 33.6 g/dL (32.0-36.0); MEAN CORPUSCULAR VOLUME 95.4 fL (79-99); MONOCYTES # (AUTO) 0.3 K/uL (0.1-1.0); MONOCYTES % (AUTO) 5.9 % (3.0-13.0); NEUTROPHILS # (AUTO) 3.6 K/uL (1.8-7.7); NEUTROPHILS % (AUTO) 64.3 % (40.0-77.0); PLATELET COUNT (AUTO) 162 K/uL (130-400); RED BLOOD CELL COUNT(AUTO) 3.93 MIL/uL (4.00-5.50); RED CELL DISTRIBUTION WIDTH 11.9 % (11.0-15.5); WHITE BLOOD COUNT (AUTO) 5.6 K/uL (4.8-10.8)
[2024-05-27 13:16] LABS: POTASSIUM 4.1 mmol/L (3.5-5.1)
[2024-05-27] MEDS: mecliZINE HCL 25 MG TABLET PO ONE (13:26)
[2024-05-27] MEDS: LACTATED RINGERS 1000ML 1,000 ML IV ONE (13:26)
--- NOTE | 2024-05-27 13:37 | HMCIMG ---
CT HEAD/BRAIN W/O CONTRAST HISTORY: Dizzy spell COMPARISON: None TECHNIQUE: Multiple sequential axial images of the head were obtained from the base of the skull through vertex. Patient was not given contrast through intravenous route. FINDINGS: The ventricles and extraventricular CSF spaces are dilated consistent with cerebral atrophy. Nonspecific white matter changes seen. There is no midline shift, mass effect or herniation. No acute intracranial bleed is seen. Visualized portion of the paranasal sinuses are grossly within normal limits. IMPRESSION: 1. No acute intracranial bleed is seen. 2. Atrophy with white matter changes. CT was performed with one or more following dose reduction techniques: automated exposure control, adjustment of the mA and kv according to patient's size, or use of a iterative reconstruction technique.
--- NOTE | 2024-05-27 14:47 | ERN ---
General Chief Complaint: Dizzy/Light Headed Stated Complaint: VERTIGO EPISODE, VOMITTING Time Seen by MD: 10:58 History of Present Illness Initial Comments 73-year-old female who presents for vertigo type symptoms. Patient was lying down this morning, she was stood up and he had episode of the spins. She would vomit. Symptoms did improve. She came to the ER and when she got out of the car she again felt another episode. On my evaluation currently she was asymptomatic. She has been vertigo in the past. No chest pain shortness of breath. No focal deficits. Allergies: Coded Allergies: No Known Drug Allergies (Unverified Allergy, Unknown, 01/19/16) Home Meds Active Scripts Famotidine (Famotidine) 20 Mg Tablet, 20 MG PO BID, #60 TAB Prov:OREN PRINGLE 11/16/22 Tamsulosin HCl (Flomax) 0.4 Mg Cap.er.24h, 0.4 MG PO DAILY, #30 [address]SU[address] Prov:OREN PRINGLE 11/16/22 Ibuprofen (Motrin/Advil) 800 Mg Tab, 800 MG PO TID, #30 TAB Prov:TRES CUEVAS MD 05/01/22 Reported Medications Famotidine (Famotidine) 20 Mg Tablet, 20 MG PO DAILY, TAB 12/19/23 Linagliptin (Tradjenta) 5 Mg Tablet, 5 MG PO DAILY, TAB 12/19/23 Aspirin (Aspirin) 325 Mg Tablet, 325 MG PO DAILY, TAB 12/19/23 Nifedipine (Nifedipine ER) 60 Mg Tablet.er, 60 MG PO HS, TAB 12/19/23 Atorvastatin Calcium (Atorvastatin Calcium) 10 Mg Tablet, 10 MG PO HS, TAB 12/19/23 Tamsulosin HCl (Flomax) 0.4 Mg Cap.er.24h, 0.4 MG PO DAILY, CAPSULE. 12/19/23 Mycophenolate Mofetil (Mycophenolate Mofetil) 250 Mg Capsule, 750 MG PO BID, CAP 12/19/23 Tacrolimus (Tacrolimus) 1 Mg Capsule, 2 MG PO HS, CAP 12/19/23 Tacrolimus (Tacrolimus) 1 Mg Capsule, 3 MG PO DAILY, CAP 12/19/23 Lisinopril (Lisinopril) 20 Mg Tablet, 1 TAB PO DAILY 06/26/22 Gabapentin (Gabapentin) 400 Mg Capsule, 300 MG PO HS, CAP 10/11/21 Simvastatin (ZOCOR) 40 Mg Tablet, 40 MG PO HS, TAB 10/11/21 Omeprazole (Omeprazole) 40 Mg Capsule.dr, 40 MG PO DAILY, CAP 02/04/20 Oxybutynin Chloride (Ditropan Xl) 10 Mg Tab.er.24, 10 MG PO DAILY 01/18/16 Metformin HCl (Metformin HCl) 500 Mg Tablet, 500 MG PO DAILY, TAB 01/18/16 Past Medical History Past Medical History: Diabetes-Type II Medical History Other: BLIND Past Surgical History: Hysterectomy, Cholecystectomy Surgical History Other: EYE Family History Family History: Negative Social History Social History: Negative ROS Dictation CONSTITUTIONAL: No chills, no fever, no weakness, no diaphoresis, no malaise. HEAD/FACE: No signs of trauma. EENT: No eye pain, no blurred vision, no tearing, no double vision, no ear pain, no ear discharge, no nose pain, no nasal congestion, no throat pain, no throat swelling, no mouth pain. RESPIRATORY: No cough, no orthopnea, no SOB, no stridor, no wheezing. CARDIOVASCULAR: No chest pain, no edema, no palpitations, no syncope. GASTROINTESTINAL/ABDOMINAL: No abdominal pain, no constipation, no diarrhea, no nausea, no vomiting. GENITOURINARY: No abnormal discharge, no dysuria, no frequent urination, no hematuria. No complaints of pain in the genitals. MUSCULOSKELETAL: No back pain, no gout, no joint pain, no joint swelling, no muscle pain, no muscle stiffness, no neck pain. INTEGUMENTARY: No change in color, no change in hair/nails, no dryness, no lesion, no lumps, no rash. NEUROLOGICAL/PSYCH: Dizziness HEMATOLOGIC/LYMPHATIC: Not anemic, no history of blood clots, no apparent bleeding, no bruising, glands not swollen. All Systems Negative, Except as Noted. Physical Exam Physical Exam Dictation VITAL SIGNS: Reviewed. GENERAL APPEARANCE: Alert, oriented x3, no acute distress, obese. HEAD AND FACE: Non-traumatic. EYES: Blind EARS: Pinnas intact and no signs of trauma or erythema. Ear canals clear and no discharge. TMs no erythema. NOSE: No discharge, no bleeding. OROPHARYNX: Mouth normal, teeth no caries, tongue pink. Pharynx clear, no erythema. Tonsils no exudates, no abscesses noted. Mucous membrane moist. NECK: Supple, non-tender, no thyromegaly, no masses, no JVD, no bruits. BREAST: Deferred. CHEST: No tenderness, no crepitus, no paradoxical movement, no retractions. LUNGS: Clear, well-ventilated, symmetric, no rales, no wheezing, no rhonchi, no stridor, good breath sounds bilaterally. HEART: Regular rate, regular rhythm, no murmur, no gallops. VASCULAR: No peripheral edema. ABDOMEN: Soft, positive bowel sounds, nondistended, no guarding, nontender, no rebound, no masses no hepatomegaly, no splenomegaly, no Pacheco's sign, no hernias. RECTAL: Deferred. GENITAL: Deferred. NEUROLOGICAL: Normal speech, gross motor function intact, gross sensory function intact. MUSCULOSKELETAL: Neck nontender, full range of motion, back nontender, full range of motion. EXTREMITIES: Nontender, full range of motion. SKIN: Color pink, dry, no turgor, no rash, no lacerations, no abrasions, no contusions. LYMPHATICS: Deferred. Results Laboratory and Microbiology Lab and Micro Result Laboratory Tests Test 05/27/24 12:37 05/27/24 13:25 White Blood Count 5.6 K/uL (4.8-10.8) Red Blood Count 3.93 MIL/uL (4.00-5.50) L Hemoglobin 12.6 g/dL (12.0-16.0) Hematocrit 37.5 % (36-48) Mean Corpuscular Volume 95.4 fL (79-99) Mean Corpuscular Hemoglobin 32.1 pg (27.0-33.0) Mean Corpuscular Hemoglobin Concent 33.6 g/dL (32.0-36.0) Red Cell Distribution Width 11.9 % (11.0-15.5) Platelet Count 162 K/uL (130-400) Mean Platelet Volume 9.4 fL (7.5-10.5) Immature Granulocyte % (Auto) 0.2 % (0-1) Neutrophils (%) (Auto) 64.3 % (40.0-77.0) Lymphocytes (%) (Auto) 29.0 % (21.0-51.0) Monocytes (%) (Auto) 5.9 % (3.0-13.0) Eosinophils (%) (Auto) 0.2 % (0.0-8.0) Basophils (%) (Auto) 0.4 % (0.0-5.0) Neutrophils # (Auto) 3.6 K/uL (1.8-7.7) Lymphocytes # (Auto) 1.6 K/uL (1.0-4.8) Monocytes # (Auto) 0.3 K/uL (0.1-1.0) Eosinophils # (Auto) 0.01 K/uL (0.00-0.70) Basophils # (Auto) 0.02 K/uL (0.00-0.20) Absolute Immature Granulocyte (auto 0.01 K/uL (0-1) Nucleated Red Blood Cells 0.0 % (0.0-0.19) Sodium Level 140 mmol/L (136-145) Potassium Level 4.1 mmol/L (3.5-5.1) Chloride Level 103 mmol/L (101-111) Carbon Dioxide Level 31 mmol/L (21-32) Blood Urea Nitrogen 28 mg/dL (7-18) H Creatinine 1.0 mg/dL (0.5-1.0) Glomerular Filtration Rate Calc 59 mL/min (>90) Random Glucose 153 mg/dL (70-105) H Total Calcium 9.2 mg/dL (8.5-10.1) Troponin I < 0.05 ng/mL (0.00-0.05) MDM CC: Dizziness and vertigo Historian: Patient Comorbidities: Blind, diabetes, hysterectomy and cholecystectomy Limitations by social determinants of health: None Differential diagnosis: Stroke or vertigo, UR infection, ACS, dehydration, other. EKG: Sinus rhythm, rate 69, normal axis, right bundle-branch block morphology, no STEMI. Independently interpreted by me. Labs ( independently interpreted by me ): CBC is normal, BNP is normal. troponin is normal. CT head ( independently interpreted by me): No acute bleeding Treatment in ED: Patient received IV fluids, meclizine oral, and Reglan IV. On re-evaluation she is p.o. tolerant. She had a sandwich at the bedside. While in the ER, she was being monitored, she was going to asymptomatic and then she stood up and she had another episode of vertigo. This resolved on its own as well. Symptoms are very consistent with a benign positional vertigo. I did consider admission for the patient, I discussed this with the family and offered admission for symptomatic relief, but the family at this point in time prefers discharge home. We will try meclizine and Reglan at home and recommend that they return to the emergency department as needed. Has a patient continues with symptoms or as any other concerning symptoms she can return to the emergency department for further care. ED Course Orders Procedure Category Date Status Time Ct Head/Brain W/O CT 05/27/24 Resulted Contrast 11:54 Cbc With Differential LAB 05/27/24 Complete 11:54 12 Lead Ekg Tracing- EKG 05/27/24 Complete Technical 11:54 Lactated Ringers PHA 05/27/24 Complete 1000ml (Lactated 12:00 Troponin Poc Order LAB 05/27/24 Complete Only 11:54 Basic Metabolic Panel LAB 05/27/24 Complete 11:54 Meclizine Hcl 25 Mg PHA 05/27/24 Complete (Antivert 25 Mg) 12:00 Metoclopramide 10 PHA 05/27/24 Logged Mg/2 Ml Vial (Reglan 1 15:00 Current Medications Medications (Trade) Dose Ordered Sig/Scarlett Route PRN Reason Start Time Stop Time Status Last Admin Dose Admin Lactated Ringer's 1,000 ml @ 0 mls/hr ONCE ONCE IV 05/27/24 12:00 05/27/24 12:01 DC 05/27/24 13:26 Meclizine HCl (ANTIvert 25 mg) 25 mg ONCE ONCE PO 05/27/24 12:00 05/27/24 12:01 DC 05/27/24 13:26 Metoclopramide HCl (regLAN 10MG IV) 5 mg ONCE ONCE IVP 05/27/24 15:00 05/27/24 15:01 UNV Vital Signs Date Time Temp Pulse Resp B/P (MAP) Pulse Ox O2 Delivery O2 Flow Rate FiO2 05/27/24 13:02 98.2 72 20 171/56 95 Room Air* 0 21 05/27/24 11:04 98.1 73 16 128/39 96 Room Air 0 DX & DISP Disposition: Discharge Departure Impression: Primary Impression: Vertigo Additional Impression: BPPV (benign paroxysmal positional vertigo) Condition: Stable Scripts Metoclopramide HCl (Reglan) 5 Mg Tab 1 TAB PO TID for nausea for 10 Days, #20 TAB 0 Refills Prov: WALLACE BARNETT DO 05/27/24 Ondansetron (Ondansetron Odt) 4 Mg Tab.rapdis 1 TAB PO Q6HPRN PRN for nausea/vomiting for 3 Days, #10 TAB 0 Refills Prov: WALLACE BARNETT DO 05/27/24 Additional Instructions: Your symptoms are consistent with benign positional vertigo. This is often caused by an inner ear problem. You received IV fluids, IV Reglan, and meclizine here in the ER. I have prescribed ondansetron and Reglan. Both of these medicines can be used for nausea. Try the Reglan for vertigo type symptoms. Your lab work (CBC, BMP, troponin) is normal. The CT scan of the brain does not show any acute abnormalities. EKGs normal. As we discussed, you can follow up with the primary doctor if you continue with symptoms. If you have any concerns please return to the emergency department. Referrals: CHANDLER LACY MD (PCP) WALLACE BARNETT DO May 27, 2024 14:47
[2024-05-27] MEDS ORDERED: ONDA-243 PO (14:53)
[2024-05-27] MEDS ORDERED: METO5 PO (14:53)
[2024-05-27] MEDS: metoCLOPRAmide 10 MG/2 ML VIAL IVP ONE (15:07)
--- NOTE | 2024-05-27 15:10 | NUR ---
DC DELAY PEND MEDICATION ADMIN RESULT
[2024-05-27 15:11] VITALS: BP 168/60; PULSE 70; RESP 18; TEMP 98.2; O2SAT 98
== END 2024-05-27 15:37 | disposition home or self-care (01) ==
LOC: EDH 10:52
DX: H81.10 Benign paroxysmal vertigo, unspecified ear (principal); E11.9 Type 2 diabetes mellitus without complications; Z79.1 Long term (current) use of non-steroidal anti-inflammatories (NSAID); Z79.621 Long term (current) use of calcineurin inhibitor; Z79.624 Long term (current) use of inhibitors of nucleotide synthesis; Z79.82 Long term (current) use of aspirin; Z79.84 Long term (current) use of oral hypoglycemic drugs; Z79.899 Other long term (current) drug therapy; Z90.49 Acquired absence of other specified parts of digestive tract; Z90.710 Acquired absence of both cervix and uterus
CPT/HCPCS: 99285; 96374; 70450; 96361; 84484; 80048; 85025; 36415; 93005; J7120; J2765